=== PATIENT | female | born 1980 ===

== ENCOUNTER 2017-03-10 09:18 | Emergency (ER) | payer MEDICAID ==
[2017-03-10 09:18] VITALS: BMI 27.4
[2017-03-10 09:26] VITALS: BP 127/85; PULSE 90; RESP 16; TEMP 98.6; O2SAT 97
--- NOTE | 2017-03-10 09:39 | C.PDOC ---
History Of Present Illness 37 y/o female presents to ED with complaints of left sided sore throat and left ear pain for 4 days. Patient states symptoms developed onset after spending weekend [place] a [place]. Patient reports pain is localized in left throat and is worse with swallowing. Patient denies fever, sick contacts, hearing loss, Barotrauma or any other complaints at this time. L SORE THROAT, L EAR PAIN SINCE 4 DAYS. ONSET AFTER SPENDING WEEKEND AT [employer]. NO FEVER, SICK CONTACTS. PAIN LOCALIZED L THROAT, WORSE W SWALLOWING. NO HEARING LOSS, BAROTRAUMA EXAM NAD HEENT +L>R TONSILAR SWELL NO ERYTHEMA OR EXUDATE. L EAR WNL. NO CERV NODES SUPPLE Time Seen by Provider: 03/10/17 09:37 Chief Complaint (Nursing): ENT Problem History Per: Patient History/Exam Limitations: no limitations Onset/Duration Of Symptoms: Days Current Symptoms Are (Timing): Still Present Location Of Pain: Ear(s), Throat Associated Symptoms: Sore Throat. denies: Fever Past Medical History Reviewed: Historical Data, Nursing Documentation, Vital Signs Vital Signs: Last Vital Signs Temp 98.6 F 03/10/17 09:24 Pulse 90 03/10/17 09:24 Resp 16 03/10/17 09:24 BP 127/85 03/10/17 09:24 Pulse Ox 97 03/10/17 09:44 - Medical History PMH: Back Problems Family History: States: No Known Family Hx - Social History Hx Tobacco Use: No Hx Alcohol Use: No Hx Substance Use: No - Immunization History Hx Tetanus Toxoid Vaccination: Yes Hx Influenza Vaccination: Yes Hx Pneumococcal Vaccination: Yes Review Of Systems Except As Marked, All Systems Reviewed And Found Negative. Constitutional: Negative for: Fever, Chills ENT: Positive for: Ear Pain, Throat Pain. Negative for: Ear Discharge Cardiovascular: Negative for: Chest Pain Respiratory: Negative for: Shortness of Breath Skin: Negative for: Rash Physical Exam - Physical Exam Appears: No Acute Distress Skin: Normal Color, Warm, No Rash Head: Atraumatic, Normacephalic Eye(s): bilateral: Normal Inspection Ear(s): Bilateral: Normal Nose: Normal Oral Mucosa: Moist Throat: No Erythema, No Exudate, Other (L>R tonsullar swelling) Neck: Normal ROM, Supple Lymphatic: Other (No cervical nodes) Chest: Symmetrical Neurological/Psych: Oriented x3, Normal Speech, Normal Cognition ED Course And Treatment O2 Sat by Pulse Oximetry: 97 (RA) Pulse Ox Interpretation: Normal Disposition Counseled Patient/Family Regarding: Diagnosis, Need For Followup, Rx Given - Disposition Referrals: [facility] [Outside] [facility] [Outside] Disposition: HOME/ ROUTINE Disposition Time: 09:39 Condition: GOOD Prescriptions: Dexamethasone 12 mg PO ONCE #2 tablet Ibuprofen [Motrin] 600 mg PO Q6 #30 tab Instructions: Pharyngitis (ED) Forms: [employer] ([place]), Work Excuse - Clinical Impression Clinical Impression: Pharyngitis, Otalgia - PA / BOILER MECHANIC / Resident Statement MD/DO has examined the patient and agrees with the treatment plan. - Scribe Statement The provider has reviewed the documentation as recorded by the Gilibalthea Michel All medical record entries made by the Gilibalthea were at my direction and personally dictated by me. I have reviewed the chart and agree that the record accurately reflects my personal performance of the history, physical exam, medical decision making, and the department course for this patient. I have also personally directed, reviewed, and agree with the discharge instructions and disposition.
== END 2017-03-10 10:04 | disposition home or self-care (01) ==
LOC: C.ER 09:18
DX: J02.9 Acute pharyngitis, unspecified (principal); H92.02 Otalgia, left ear

== ENCOUNTER 2017-09-02 08:44 | Emergency (ER) | payer MEDICAID ==
[2017-09-02 08:44] VITALS: BMI 27.4
[2017-09-02 09:18] VITALS: BP 150/91; PULSE 88; RESP 16; TEMP 98.5; O2SAT 98
--- NOTE | 2017-09-02 09:40 | C.PDOC ---
History Of Present Illness 37 y/o female presents to ED with complaints of rash to right side of neck for one week and sore throat and left ear pain today. Patient denies fever, chest pain, nausea, vomiting, cough, headache or shortness of breath. Time Seen by Provider: 09/02/17 09:15 Chief Complaint (Nursing): ENT Problem History Per: Patient History/Exam Limitations: no limitations Onset/Duration Of Symptoms: Days Current Symptoms Are (Timing): Still Present Past Medical History Reviewed: Historical Data, Nursing Documentation, Vital Signs Vital Signs: Last Vital Signs Temp 98.5 F 09/02/17 09:16 Pulse 88 09/02/17 09:16 Resp 16 09/02/17 09:16 BP 150/91 H 09/02/17 09:16 Pulse Ox 98 09/02/17 09:42 - Medical History PMH: Back Problems Surgical History: No Surg Hx Family History: States: No Known Family Hx - Social History Hx Tobacco Use: No Hx Alcohol Use: No Hx Substance Use: No - Immunization History Hx Tetanus Toxoid Vaccination: Yes Hx Influenza Vaccination: Yes Hx Pneumococcal Vaccination: Yes Review Of Systems Constitutional: Negative for: Fever, Chills ENT: Positive for: Ear Pain, Throat Pain Respiratory: Negative for: Cough, Shortness of Breath Gastrointestinal: Negative for: Nausea, Vomiting Skin: Positive for: Rash Physical Exam - Physical Exam Appears: Non-toxic, No Acute Distress Skin: Warm, Dry, Rash (minimal erythema to right side of neck, no urticaria, no vesicles ) Head: Atraumatic, Normacephalic Eye(s): bilateral: Normal Inspection Ear(s): Bilateral: Normal Oral Mucosa: Moist Throat: Normal, No Erythema, No Exudate Neck: Normal ROM, Supple Cardiovascular: Rhythm Regular Respiratory: Normal Breath Sounds, No Rales, No Rhonchi, No Wheezing Gastrointestinal/Abdominal: Soft, No Tenderness, No Guarding, No Rebound Neurological/Psych: Oriented x3 ED Course And Treatment O2 Sat by Pulse Oximetry: 98 (RA) Medical Decision Making Medical Decision Making: Patient complains of sore throat today. Exam shows no signs of strep, abscess, or peritonsillar abscess Patient with itching to neck, no visible rash. Patient has no fever or distress. Disposition Counseled Patient/Family Regarding: Diagnosis, Need For Followup, Rx Given - Disposition Referrals: Mau Lewis MD [Staff Provider] - Disposition: HOME/ ROUTINE Disposition Time: 09:40 Condition: GOOD Additional Instructions: apply cream to area as needed for itching or irritation take lozenges or try gargles to help with throat pain if you develop fever or other concern please contact your physician for office visit return to hospital if you have trouble swallowing or other concern Prescriptions: Hydrocortisone 0.5% [Cortizone 0.5%] 1 ea EXT DAILY #1 tube Instructions: Sore Throat in Adults Forms: [employer] (Lao), Work Excuse - POA Present On Arrival: None - Clinical Impression Clinical Impression: Sore throat, Skin irritation - PA / CARDIAC NURSE SPECIALIST / Resident Statement MD/DO has reviewed & agrees with the documentation as recorded. - Scribe Statement The provider has reviewed the documentation as recorded by the Scribalthea Michel All medical record entries made by the Gilibalthea were at my direction and personally dictated by me. I have reviewed the chart and agree that the record accurately reflects my personal performance of the history, physical exam, medical decision making, and the department course for this patient. I have also personally directed, reviewed, and agree with the discharge instructions and disposition.
== END 2017-09-02 10:02 | disposition home or self-care (01) ==
LOC: C.ER 08:44
DX: J02.9 Acute pharyngitis, unspecified (principal); R21 Rash and other nonspecific skin eruption

== ENCOUNTER 2018-06-17 08:59 | Emergency (ER) | payer MEDICAID ==
[2018-06-17 09:43] VITALS: BMI 12.8
[2018-06-17 10:02] LABS: BASO % 0.2 % (0.0-2.0); EOS # 0.1 K/uL (0.0-0.7); EOS % 0.8 % (0.0-4.0); LYMPH # 3.1 K/uL (1.0-4.3); LYMPH % 24.6 % (20.0-40.0); MEAN CELL VOLUME 71.8 fL (81.0-99.0); MEAN CORPUSCULAR HEMOGLOBIN 23.2 pg (27.0-31.0); MEAN CORPUSCULAR HGB CONC 32.3 g/dL (33.0-37.0); MEAN PLATELET VOLUME 9.2 fL (7.2-11.7); MONO % 8.1 % (0.0-10.0); NEUT # 8.3 K/uL (1.8-7.0); NEUT % 66.3 % (50.0-75.0); RBC 4.3 Mil/uL (3.80-5.20); RED CELL DISTRIBUTION WIDTH 16.5 % (11.5-14.5); WHITE BLOOD COUNT 12.5 K/uL (4.8-10.8)
--- NOTE | 2018-06-17 10:05 | C.PDOC ---
History Of Present Illness 38 y/o female presents to the ER complaining of intermittent left sided abdominal pain which has been present for the past 4 days. Patient describes the pain as sharp. Patient reports that her LMP was 1 week ago. She notes that she is pre-diabetic. Denies having fever, chills, nausea, vomiting, dysuria, hematuria, vaginal bleeding and vaginal discharge. Time Seen by Provider: 06/17/18 09:24 Chief Complaint (Nursing): Abdominal Pain History Per: Patient History/Exam Limitations: no limitations Onset/Duration Of Symptoms: Days Current Symptoms Are (Timing): Still Present Severity: Moderate Location Of Pain/Discomfort: Suprapubic Quality Of Discomfort: Sharp Associated Symptoms: denies: Fever, Chills, Nausea, Vomiting, Diarrhea, Constipation, Urinary Symptoms Past Medical History Reviewed: Historical Data, Nursing Documentation, Vital Signs Vital Signs: Last Vital Signs Temp 98.7 F 06/17/18 09:21 Pulse 86 06/17/18 09:21 Resp 16 06/17/18 09:21 BP 140/91 H 06/17/18 09:21 Pulse Ox 99 06/17/18 09:21 - Medical History PMH: Back Problems Surgical History: Family History: States: No Known Family Hx - Social History Hx Tobacco Use: No Hx Alcohol Use: No Hx Substance Use: No - Immunization History Hx Tetanus Toxoid Vaccination: Yes Hx Influenza Vaccination: Yes Hx Pneumococcal Vaccination: Yes Review Of Systems Except As Marked, All Systems Reviewed And Found Negative. Constitutional: Negative for: Fever, Chills Gastrointestinal: Positive for: Abdominal Pain. Negative for: Nausea, Vomiting, Diarrhea Genitourinary: Negative for: Dysuria, Hematuria, Vaginal Discharge, Vaginal Bleeding Physical Exam - Physical Exam Appears: Non-toxic, No Acute Distress Skin: Normal Color, Warm, Dry Head: Atraumatic, Normacephalic Eye(s): bilateral: Normal Inspection Nose: Normal Oral Mucosa: Moist Neck: Supple Chest: Symmetrical Cardiovascular: Rhythm Regular Respiratory: Normal Breath Sounds, No Rales, No Rhonchi, No Wheezing Gastrointestinal/Abdominal: Soft, Tenderness (mild left-sided tenderness), No Guarding, No Rebound Neurological/Psych: Oriented x3 Gait: Steady ED Course And Treatment - Laboratory Results Result Diagrams: 06/17/18 09:54 06/17/18 09:54 Lab Interpretation: No Acute Changes Urine POC: Negative O2 Sat by Pulse Oximetry: 99 (RA) Pulse Ox Interpretation: Normal - CT Scan/US No standard instances Other Rad Studies (CT/US): Read By Radiologist, Radiology Report Reviewed CT/US Interpretation: FINDINGS: UTERUS: Measures 9.7 x 5.3 x 6.2 cm. 0.8 x 0.7 x 0.8 cm exophytic cystic focus at the fundus. ENDOMETRIUM: Measures 9 mm in diameter. CERVIX: Nabothian cyst. RIGHT OVARY: Measures 4.9 x 3.6 x 4.1 cm. Blood flow is demonstrated. 3.9 x 3.1 x 3.5 cm complex cyst. LEFT OVARY: Measures 5.3 x 2.0 x 2.5 cm. Blood flow is demonstrated. FREE FLUID: No significant free fluid noted. OTHER FINDINGS: None. IMPRESSION: 8.9 x 3.1 x 3.5 cm right ovarian complex cyst. Recommend 6 week ultrasound follow-up to assess for complete resolution. Additional incidental findings as above. Progress Note: Treated with toradol. On re-evaluation abdomen soft, advised to follow up with INSTRUCTIONAL TECHNOLOGY COORDINATOR for further evaluation Reassessment Condition: Improved Medical Decision Making Medical Decision Making: Plan: --Labs --UA --US- Transvag --HCG, Qual. --Toradol IV Disposition Counseled Patient/Family Regarding: Studies Performed, Diagnosis, Need For Followup, Rx Given - Disposition Referrals: [facility] [Outside] [facility] [Outside] Disposition: HOME/ ROUTINE Disposition Time: 13:00 Condition: IMPROVED Additional Instructions: Follow up with your PMD and INSTRUCTIONAL TECHNOLOGY COORDINATOR for further evaluation Return to ED if any increase symptoms Prescriptions: Naproxen [Naprosyn] 1 tab PO BID PRN #25 tab PRN Reason: Pain Instructions: Ovarian Cysts Forms: [employer] (Bulgarian) - POA Present On Arrival: None - Clinical Impression Clinical Impression: Abdominal pain, Ovarian cyst - PA / MEDICAL TYPIST / Resident Statement MD/DO has reviewed & agrees with the documentation as recorded. - Scribe Statement The provider has reviewed the documentation as recorded by the Tiffanie Wolff Provider Attestation All medical record entries made by the Scribe were at my direction and personally dictated by me. I have reviewed the chart and agree that the record accurately reflects my personal performance of the history, physical exam, medical decision making, and the department course for this patient. I have also personally directed, reviewed, and agree with the discharge instructions and disposition.
[2018-06-17 10:09] LABS: HCG,QUALITATIVE URINE NEGATIVE (NEGATIVE)
[2018-06-17 10:14] LABS: SQUAMOUS EPITHIAL 2 /hpf (0-5); URINE BACTERIA OCC (<OCC); URINE BILIRUBIN 1+ (NEGATIVE); URINE BLOOD NEGATIVE (NEGATIVE); URINE CLARITY Clear (Clear); URINE COLOR Amber (YELLOW); URINE GLUCOSE (UA) NORMAL (Normal); URINE LEUKOCYTE ESTERASE NEG Leu/uL (Negative); URINE PROTEIN 1+ mg/dL (NEGATIVE)
[2018-06-17 10:16] LABS: ALB/GLOB RATIO 1.1 (1.0-2.1); ALBUMIN 4.5 g/dL (3.5-5.0); ALT/SGPT 41 U/L (9-52); AST/SGOT 28 U/L (14-36); BLOOD UREA NITROGEN 10 mg/dL (7-17); CALCIUM 8.9 mg/dl (8.6-10.4); GFR NON-AFRICAN AMERICAN > 60
--- NOTE | 2018-06-17 12:50 | US ---
Date of service: 06/17/2018 HISTORY: vaginal bleeding COMPARISON: None available. TECHNIQUE: Transvaginal pelvic ultrasound FINDINGS: UTERUS: Measures 9.7 x 5.3 x 6.2 cm. 0.8 x 0.7 x 0.8 cm exophytic cystic focus at the fundus. ENDOMETRIUM: Measures 9 mm in diameter. CERVIX: Nabothian cyst. RIGHT OVARY: Measures 4.9 x 3.6 x 4.1 cm. Blood flow is demonstrated. 3.9 x 3.1 x 3.5 cm complex cyst. LEFT OVARY: Measures 5.3 x 2.0 x 2.5 cm. Blood flow is demonstrated. FREE FLUID: No significant free fluid noted. OTHER FINDINGS: None. IMPRESSION: 8.9 x 3.1 x 3.5 cm right ovarian complex cyst. Recommend 6 week ultrasound follow-up to assess for complete resolution. Additional incidental findings as above.
[2018-06-17 13:06] VITALS: BP 144/84; PULSE 81; RESP 20; TEMP 98.2
[2018-06-17 16:08] VITALS: O2SAT 99
== END 2018-06-17 13:29 | disposition home or self-care (01) ==
LOC: C.ER 08:59
DX: N83.209 Unspecified ovarian cyst, unspecified side (principal); R10.9 Unspecified abdominal pain
CPT/HCPCS: 76830; 80053; 81001; 82948; 84703; 85025; 96374; 99285; J1885